=== PATIENT | male | born 1990 | race Caucasian/White ===

== ENCOUNTER 2017-11-15 12:32 | Emergency (ER) | payer BC ==
[~2017-11-15] VITALS: Ht 182.9 cm; Wt 84.4 kg
[2017-11-15] MEDS ORDERED: HYDROmorphone INJ 0.5 MG/0.5 ML SYR IV STA (12:44)
[2017-11-15] MEDS ORDERED: SODIUM CHLORIDE 0.9% 500ML 500 ML IV STA (12:44)
[2017-11-15] MEDS ORDERED: HYDROmorphone INJ 0.5 MG/0.5 ML SYR IV PRN (12:45)
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
[2017-11-15 12:55] VITALS: TEMP 36.6; Ht 182.9 cm; Wt 84.4 kg
[2017-11-15 12:57] LABS: HEMATOCRIT 43.8 % (42-52); HEMOGLOBIN 15.2 g/dL (14.0-18.0); MEAN CELL VOLUME 89.4 fL (80-100); MEAN CORPUSCULAR HGB CONC 34.7 g/dl (32-36); MEAN PLATELET VOLUME 9.3 fL (7.4-10.4); PLATELET COUNT 331 K/uL (130-400); RED CELL DISTRIBUTION WIDTH CV 12.9 % (11.5-14.5); RED CELL DISTRIBUTION WIDTH SD 42.1 fL (36.4-46.3); WHITE BLOOD COUNT 7.97 K/uL (4.8-10.8)
[2017-11-15] MEDS ORDERED: OPTIRAY 320 IV PRN (13:00)
[2017-11-15] MEDS ORDERED: DIPHTHERIA/TETANUS/PERTUSSIS 0.5 ML SYR/VIAL IM. ONE (13:00)
[2017-11-15 13:06] LABS: PTT PATIENT 21.7 SECONDS (21.0-31.0)
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
[2017-11-15 13:17] LABS: ALBUMIN 3.9 gm/dl (3.4-5.0); CALCIUM 9.3 mg/dl (8.5-10.1); CREATININE 1.63 mg/dl (0.60-1.40); POTASSIUM 3.4 mmol/L (3.5-5.1)
[2017-11-15 13:58] VITALS: BP 140/92; PULSE 108; O2SAT 99
== END 2017-11-15 13:40 | disposition short-term general hospital (02) ==
LOC: C.EDB 12:36
DX: S32.302A Unspecified fracture of left ilium, initial encounter for closed fracture (principal); S22.42XA Multiple fractures of ribs, left side, initial encounter for closed fracture; V27.4XXA Motorcycle driver injured in collision with fixed or stationary object in traffic accident, initial encounter; S30.810A Abrasion of lower back and pelvis, initial encounter; S30.0XXA Contusion of lower back and pelvis, initial encounter; Z23 Encounter for immunization

== ENCOUNTER 2024-03-03 03:23 | Inpatient (IN) ==
[2024-03-03] MEDS: MIDAZOLAM HCL 5 MG/ML 2ML VIAL IV STA ×2 (03:32→04:40)
[2024-03-03] MEDS: VECURONIUM BROMIDE 10 MG VIAL IV STA ×2 (03:42→05:09)
[2024-03-03 03:49] LABS: iSTAT Creatinine 1.8 mg/dl (0.6-1.3); iSTAT Ionized Calcium 1.23 mmol/l (1.12-1.32); iSTAT Potassium 4.5 mmol/L (3.3-5.0)
--- NOTE | 2024-03-03 04:09 | Emergency Department Note ---
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 to dedicated hand exam performed at the same time. FINDINGS: Bones/joints: No fracture, erosion or dislocation. Soft tissues: There is a 1 mm linear foreign body subjacent to a small cutaneous bulge which could reflect a laceration on the palmar surface of the second finger at the level of the distal shaft of the middle phalanx. It is roughly 1 mm deep to the skin. No soft tissue gas. IMPRESSION: There is a 1 mm linear foreign body subjacent to a small cutaneous bulge which could reflect a laceration on the palmar surface of the second finger at the level of the distal shaft of the middle phalanx. It is roughly 1 mm deep to the skin. ACT 112: Negative or not required by law. Electronically signed by Madhuri Matamoros 03-03-2024 5:11 PM Abdomen/Pelvis CT 03/03/24 03:41 EXAM: CT abd pelvis IV con only CLINICAL HISTORY: TRAUMA, 93 ML OPTIRAY 320 TECHNIQUE: Contrast-enhanced CT of the abdomen and pelvis was performed, with the following protocol: axial images with, and reconstructed coronal and sagittal images. 93 ml Optiray 320 Intravenous contrast was administered. One of the following dose reduction techniques was utilized for this exam: Automated exposure control, adjustment of the mA and/or kV according to patient size, and use of iterative reconstruction. COMPARISON: CR PELVIS 11/15/2017. FINDINGS: Visualized lower chest: Please review dedicated CT chest report. An NG tube is visualized, with a fenestration noted distal to the gastroesophageal junction. Advancing the tube by 4-5 cm is recommended. Abdomen: Liver: The liver measured about 18 cm in maximal craniocaudal dimension. Normal in shape, and density. No focal lesions, cysts, or masses were identified. Hepatic vasculature and biliary ducts are unremarkable. Gallbladder and Biliary System: The gallbladder is normal in size and shape. No wall thickening, pericholecystic fluid, or gallstones were identified. The common bile duct is normal in caliber, without dilation. Pancreas: Pancreatic head, body, and tail are visualized and appear normal in size and density. No pancreatic masses or calcifications were noted. The pancreatic duct is not dilated. Spleen: Normal in size, shape, and density. No splenic lesions or masses were identified. Kidneys and Adrenal Glands: Both kidneys are normal in size, shape, and position. Cortical thickness is within normal limits. No renal calculi or hydronephrosis. Adrenal glands are unremarkable with no evidence of masses or hyperplasia. Pelvis: Urinary Bladder: Cha's catheter is seen with its tip indnting the left anterolateral urinary bladder wall. Recommend withdrawal for 2-3 cm. Normal in contour and wall thickness. No intraluminal lesions identified. Prostate: Normal in size and contour. No focal lesions or masses identified. Seminal Vesicles: Normal in size and appearance. No abnormalities noted. Rectum and Sigmoid Colon: Normal wall thickness and no evidence of mass. Peritoneal and Retroperitoneal Structures: No free fluid or abnormal fluid collections were identified within the abdomen or pelvis. No lymphadenopathy was noted. Bowel: The visualized bowel loops are normal in caliber and appearance. No evidence of bowel obstruction or wall thickening. The appendix is unremarkable. No signs of inflammatory changes. Bones and Soft Tissues: Evidence of old left iliac bone fracture with interval healing. Pelvic bones and soft tissues are unremarkable. IMPRESSION: 1. No evidence of acute intra-abdominal pathology, acute bone fracture, or abdominal free fluid. 2. Mild hepatomegaly. 3. Compared to previous study CR pelvis, interval healing of the previously noted left iliac bone fracture is noted. Electronically signed by Lucian Hawthorne 03-03-2024 06:[address] 03/03/24 03:41 EXAM: CT cervical spine wo con CLINICAL HISTORY: TRAUMA TECHNIQUE: CT scan of the cervical spine was performed without the administration of intravenous contrast. Contiguous axial images were obtained from the skull base to the upper thoracic spine. Coronal and sagittal reformatted images were also reviewed. One of the following dose reduction techniques was utilized for this exam. Automated exposure control, adjustment of the mA and/or kV according to patient size, and use of iterative reconstruction. COMPARISON: No previous studies are available for comparison. FINDINGS: Vertebrae: Straightened cervical curve, likely muscle spasm. The vertebral bodies are normal in height and alignment. No evidence of acute fracture or dislocation. The cortical and trabecular bone patterns are normal. No signs of lytic or sclerotic lesions. Normal configuration of the posterior elements. Mild cervical spondylotic changes with small marginal osteophytic lippings of the cervical opposing vertebral end plates. Intervertebral Discs and Neural Foramina: The intervertebral disc spaces are preserved. C5-6 posterior disc bulge and traction osteophyte are seen indenting the thecal sac with moderate bilateral foraminal and spinal canal stenosis. No calcifications or ossifications were noted within the discs. Facet Joints: The facet joints are normal without evidence of dislocation, subluxation, or significant degenerative changes. Prevertebral Soft Tissues: The prevertebral soft tissues are normal in thickness without evidence of mass or abnormal fluid collection. Additional Findings: No other significant findings are noted in the visualized soft tissue structures or bony elements. Endotracheal and nasogastric tubes are noted. Prominent nasopharyngeal roof tissue IMPRESSION: 1. No evidence of acute fracture or dislocation. 2. Straightened cervical curve, likely muscle spasm. 3. Mild cervical spondylotic changes. 4. C5-6 posterior disc bulge and traction osteophyte inducing moderate bilateral foraminal and spinal canal stenosis. Electronically signed by Lucian Hawthorne 03-03-2024 05:[address] 03/03/24 03:41 EXAM: CT chest diagnostic w con CLINICAL HISTORY: TRAUMA, 93 ML OPTIRAY 320 TECHNIQUE: Contiguous 3.[address] images of the chest were acquired with administration of 93ml of Optray-320mg/ml intravenous contrast. Coronal and sagittal reconstructions were obtained. One of the following dose reduction techniques were utilized for this exam: Automated exposure control, adjustment of the mA and/or kV according to patient size, and use of iterative reconstruction COMPARISON: XR chest 03/03/2024 02:33:54 ULTIMATE HOOPS REFEREE. FINDINGS: Lungs: Right lower lobar collapse with residual air bronchograms noted within No ground-glass opacities or interstitial changes. No pleural effusion or pleural thickening. Mediastinum: No mediastinal mass or abnormal lymphadenopathy. Normal appearance of the thymus. Hilar Structures: Normal size and configuration, no enlargement. Heart and Great Vessels: Normal heart size and configuration. No pericardial effusion. Normal caliber and course of the thoracic aorta and other great vessels. No significant atherosclerosis or aneurysm. Normal enhancement of the great vessels post-contrast. Pulmonary Arteries: No evidence of pulmonary embolism. Normal size and course of the pulmonary arteries. Esophagus: Normal course and caliber. No masses or dilatation. Bones: No fractures or lytic/sclerotic lesions. Normal bone density and alignment. No evidence of rib fractures. Chest Wall: No masses or soft tissue abnormalities. Upper Abdomen: Please review the dedicated CT Abdomen report. Thyroid: Normal size and morphology. No nodules or masses. Additional findings: An endotracheal tube is observed positioned approximately 6 cm above the sb. An NG tube is visualized, with a fenestration noted distal to the gastroesophageal junction. Advancing the tube by 4-5 cm is recommended. IMPRESSION: 1. No evidence of acute fracture or pneumothorax. 2. Right lower lobar collapse with residual air bronchograms noted within. Findings could represent post-obstruction changes (possibly from mucous plugs or central mass), super-added infectious process is also a possibility. Need clinical correlation. 3. ET tube is seen in situ. 4. Recommend advancement of the NG tube about 4-5 cm. 5. Otherwise, no significant interval changes were noted. CT chest showed more details about soft tissues and bones. Electronically signed by Lucian Hawthorne 03-03-2024 06:14 AM Chest X-Ray 03/03/24 03:46 EXAM: XR chest 1V portable CLINICAL HISTORY: EVAL FOR ET PLACEMENT, TUBE WAS ADVANCED BY 2 AFTER IMAGE WAS TAKEN OVERDOSE [facility] TECHNIQUE: An X-ray image of the chest is obtained in 1 AP projection. COMPARISON: 11/15/2017. FINDINGS: ETT is seen ~ 9 cm from the sb and needs to be advanced 2-3 cm. NGT is seen coursing below the diaphragm with tip in an appropriate position. Pulmonary Parenchyma: Lungs are clear bilaterally. No evidence of consolidation, collapse, or focal opacities. No pulmonary nodules are identified. No evidence of pleural effusion or pleural thickening. Heart and Mediastinum: Heart size and shape are normal. No mediastinal widening or masses. No hilar or mediastinal lymphadenopathy. Bony Thorax: Bony thorax appears intact without fractures or deformities. Soft Tissues: Soft tissues overlying the chest wall are unremarkable. No other changes since the last study. IMPRESSION: 1. ETT is seen ~ 9 cm from the sb and needs to be advanced 2-3 cm.However, it is mentioned in the "clinical history" that the tube was already advanced 2 cm after taking the image, so please correlate with current situation of the patient if further adjustments is needed. 2. NGT is seen coursing below the diaphragm with tip in an appropriate position. 3. No acute cardiopulmonary compromise. 4. No other changes since the last study. Electronically signed by Lucian Hawthorne 03-03-2024 04:[address] 03/03/24 03:59 EXAM: CT facial bones wo con CLINICAL HISTORY: TRAUMA TECHNIQUE: CT scan of the maxillofacial region was performed without the administration of intravenous contrast. Contiguous axial images were obtained from the skull base to the mandible. Coronal and sagittal reformatted images were also reviewed. One of the following dose-reduction techniques was utilized for this exam. Automated exposure control, adjustment of the mA and/or kV according to patient size, and use of iterative reconstruction. COMPARISON: No previous studies are available for comparison. FINDINGS: Bones: Maxilla: The maxillary bones are intact without evidence of acute fracture, or lytic or sclerotic lesions. No signs of maxillary sinus wall fractures. Mandible: The mandibular bone is intact with normal cortices and trabecular patterns. There is no evidence of fracture, osteomyelitis, or neoplastic lesion. Zygomatic Bones: The zygomatic arches are intact bilaterally without evidence of fracture or deformity. Nasal Bones: The nasal bones are intact with no signs of fracture or displacement. Orbital Edmonds: The orbital edmonds are intact with no evidence of fracture or bony erosion. Orbits: The orbits are normal in size and shape. The globes are symmetric and well-positioned with no evidence of proptosis. The extraocular muscles appear normal in size and symmetry. The optic nerves are normal in caliber and course with no signs of compression or lesion. No retro-orbital masses or abnormal fluid collections are observed. Nasal Cavity and Paranasal Sinuses: Nasal Cavity: Nasal polyploid mucosal thickening merging with both inferior nasal turbinates. Deviated nasal septum to the right side with a bone spur along its convexity. Left choncha bullosa. Frontal Sinuses: The frontal sinuses are well-pneumatized and free of fluid or soft tissue masses. Ethmoid Sinuses: Mild mucosal thickening of the ethmoid air cells. Maxillary Sinuses: Mild basal mucosal thickening of the left maxillary antrum. Sphenoid Sinuses: Mild basal mucosal thickening of bilateral compartment of sphenoid sinuses. Temporomandibular Joints (TMJ): The TMJs are symmetric and normal in appearance. The mandibular condyles are well-positioned within the glenoid fossae. There are no signs of dislocation, subluxation, or degenerative changes. The articular eminences are normal in contour. Soft Tissues: The soft tissues of the face, including the cheeks, lips, and submandibular regions, appear unremarkable. There are no masses, cysts, or abnormal fluid collections. The parotid and submandibular glands are normal in size and appearance without focal lesions. Additional Findings: There are no additional abnormal findings in the visualized soft tissue structures or bony elements. No signs of osteomyelitis or other infectious processes. Nasogastric and endotracheal tubes are noted. IMPRESSION: 1. No evidence of acute fracture, dislocation or significant soft tissue abnormality. 2. Mild left maxillary, bilateral ethmoidal, and sphenoid sinusitis. 3. Nasal polyploid mucosal thickening merging with both inferior nasal turbinates. 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
[2024-03-03 04:10] LABS: Basophils # (auto) 0.07 K/uL (0.00-0.20); Basophils % (auto) 0.3 %; Eosinophils # (auto) 0.12 K/uL (0.00-0.50); Eosinophils % (auto) 0.5 %; Hematocrit (blood only) 48.1 % (42.0-52.0); Hemoglobin 16.1 g/dl (14.0-18.0); Immature Granulocytes # (auto) 0.23 K/uL (0.01-0.20); Immature Granulocytes % (auto) 0.9 %; Lymphocytes # (auto) 4.52 K/uL (1.20-3.40); Lymphocytes % (auto) 17.7 %; Mean Corpuscular Hgb Conc 33.5 g/dL (32.0-36.0); Mean Corpuscular Volume 89.6 fL (80.0-100.0); Mean Platelet Volume 8.7 fL (9.4-12.4); Monocytes % (auto) 3.5 %; Neutrophils # (auto) 19.69 K/uL (1.40-6.50); Neutrophils % (auto) 77.1 %; Platelet Count 399 K/uL (130-400); RDW Coefficient of Variation 12.7 % (11.5-14.5); RDW Standard Deviation 41.5 fL (36.4-46.3); Red Blood Count 5.37 M/uL (4.70-6.10); White Blood Count 25.53 K/ul (4.8-10.8)
[2024-03-03 04:12] LABS: Albumin Globulin Ratio 1.3 (0.9-2); Albumin Level 4.9 gm/dl (3.4-5.0); BUN Creatinine Ratio 11.1 (10-20); Bilirubin,Total 0.3 mg/dl (0.2-1.0); Creatinine Clr Calc Pharmacy 71.7 ml/min; Globulin 3.8 gm/dl (2.5-4.0); Magnesium 2.6 mg/dl (1.7-2.4); Potassium 4.4 mmol/L (3.5-5.1); Total Protein 8.7 gm/dl (6.0-8.3)
[2024-03-03 04:16] LABS: Appearance Urine Clear (Clear); Bacteria Urine Automated None Seen (None Seen); Bilirubin Urine Negative (Negative); Blood Urine 2+ (Negative); Cast Urine Automated >20 /lpf (0-2); Color Urine Yellow; Epithelial Cell Urine Auto 0-2 /hpf (0-2); Glucose Urine UA Negative (Negative); Ketones Urine Negative (Negative); Leukocyte Esterase Urine Negative (Negative); Nitrite Urine Negative (Negative); Protein Urine 2+ (Negative); RBC Urine Automated 0-2 /hpf (0-2); Specific Gravity Urine 1.013 (1.000-1.030); Urobilinogen Urine Negative (Negative); WBC Urine Automated 0-5 /hpf (0-5); pH Urine 5.5 (4.5-7.5)
[2024-03-03 04:19] LABS: Acetaminophen < 3 ug/ml (10-30); Salicylate < 3.0 mg/dl (3.0-30); Troponin I High Sensitivity 10.3 pg/ml (0-20)
[2024-03-03 04:20] LABS: Amphetamines+Metham, Urine Neg (Neg); Barbiturates, Urine Neg (Neg); Benzodiazepine, Urine Neg (Neg); Cocaine, Urine Neg (Neg); Fentanyl, Urine Neg (Neg); MDMA (Ecstacy), Urine Neg (Neg); Marijuana, Urine Neg (Neg); Methadone, Urine Neg (Neg); Opiate, Urine Neg (Neg); Phencyclidine, Urine Neg (Neg)
[2024-03-03] MEDS: MIDAZOLAM HCL 5 MG/ML 2ML VIAL ONE (04:21)
[2024-03-03] MEDS: VECURONIUM BROMIDE 10 MG VIAL IV ONE (04:21)
[2024-03-03] MEDS: RAPID SEQUENCE INDUCTION BAG ONE (04:21)
[2024-03-03] MEDS: OPTIRAY 320 100ml IV ONE (04:29)
[2024-03-03] MEDS: SUCCINYLCHOLINE CHLORIDE 20 MG/ML 10 ML VIAL IV STA (04:31)
--- NOTE | 2024-03-03 04:44 | XRay Report ---
EXAM: XR chest 1V portable CLINICAL HISTORY: EVAL FOR ET PLACEMENT, TUBE WAS ADVANCED BY 2 AFTER IMAGE WAS TAKEN OVERDOSE [facility] TECHNIQUE: An X-ray image of the chest is obtained in 1 AP projection. COMPARISON: 11/15/2017. FINDINGS: ETT is seen ~ 9 cm from the sb and needs to be advanced 2-3 cm. NGT is seen coursing below the diaphragm with tip in an appropriate position. Pulmonary Parenchyma: Lungs are clear bilaterally. No evidence of consolidation, collapse, or focal opacities. No pulmonary nodules are identified. No evidence of pleural effusion or pleural thickening. Heart and Mediastinum: Heart size and shape are normal. No mediastinal widening or masses. No hilar or mediastinal lymphadenopathy. Bony Thorax: Bony thorax appears intact without fractures or deformities. Soft Tissues: Soft tissues overlying the chest wall are unremarkable. No other changes since the last study. IMPRESSION: 1. ETT is seen ~ 9 cm from the sb and needs to be advanced 2-3 cm.However, it is mentioned in the "clinical history" that the tube was already advanced 2 cm after taking the image, so please correlate with current situation of the patient if further adjustments is needed. 2. NGT is seen coursing below the diaphragm with tip in an appropriate position. 3. No acute cardiopulmonary compromise. 4. No other changes since the last study. Electronically signed by Lucian Hawthorne 03-03-2024 04:43 AM
[2024-03-03] MEDS ORDERED: ACETAMINOPHEN 1,000 MG/100 ML VIAL IV PRN (05:01)
--- NOTE | 2024-03-03 05:09 | CT Scan Report ---
EXAM: CT head/brain wo con CLINICAL HISTORY: TRAUMA TECHNIQUE: An axial non-contrast CT scan of the brain was performed from the skull base to the high parietal region with coronal and sagittal reformats. One of the following dose-reduction techniques was utilized for this exam. Automated exposure control, adjustment of the mA and/or kV according to patient size, and use of iterative reconstruction. COMPARISON: None. FINDINGS: Brain Parenchyma: Normal attenuation of the cerebral hemispheres, cerebellum, and brainstem. No evidence of acute infarct, hemorrhage, or mass effect. No abnormal areas of hypo- or hyperattenuation. Ventricular System: Ventricles are normal in size and configuration. No evidence of hydrocephalus or ventricular enlargement. Subarachnoid Spaces: Normal sulci and cisterns. No evidence of subarachnoid hemorrhage or extra-axial fluid collections. Cerebellum and Brainstem: Normal size and density. No masses, or lesions. Orbits: Normal appearance of the globes, optic nerves, and extraocular muscles. No evidence of orbital masses. Sinuses: Mild deviated nasal septum to the right side. Minimal left maxillary, sphenoid mucosal thickening. Bilateral mild to moderate ethmoidal air cells mucosal thickening. Bilateral hypertrophied nasal turbinates with neat obliteration of both nasal fossae with mucosal thickening/retained secretions. Mastoid Air Cells: Clear mastoid air cells. No evidence of mastoiditis. Skull and Meninges: Normal skull morphology. IMPRESSION: 1. No fracture lines. No parenchyma or extra-axial fresh blood density. 2. Unremarkable CT brain study. Electronically signed by Esperanza Schmidt 03-03-2024 05:08 AM
[2024-03-03] MEDS ORDERED: STAT IV Infusion **Titration per Protocol STA (05:34)
[2024-03-03] MEDS: propofoL 1,000 MG/100 ML VIAL IV SCH (05:39)
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
[2024-03-03] MEDS: PROPOFOL BOLUS FROM BAG IV PRN (06:06)
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
[2024-03-03 06:23] LABS: Base Excess VBG -3.5 mEq/L; HCO3 VBG 22 mmol/L; Oxygen Saturation VBG 97.9 %; PCO2 VBG 41 mmHg (38-50); PO2 VBG 103 mmHg; pH VBG 7.34 (7.36-7.41)
[2024-03-03] MEDS: MIDAZOLAM HCL 1 MG/ML 2ML VIAL IV PRN (07:00)
[2024-03-03] MEDS: SODIUM CHLORIDE 0.9% 1,000 ML IV SCH (07:02)
--- NOTE | 2024-03-03 08:22 | Electrocardiogram Report ---
Test Reason : Blood Pressure : */* mmHG Vent. Rate : 101 BPM Atrial Rate : 101 BPM P-R Int : 172 ms QRS Dur : 100 ms QT Int : 346 ms P-R-T Axes : 59 62 45 degrees QTcB Int : 448 ms Sinus tachycardia Otherwise normal ECG When compared with ECG of 15-Nov-2017 13:11, No significant change Confirmed by Angel Lugo ([id number]) on 03/03/2024 8:22:37 AM Referred By: REFERRED SELF Confirmed By: Angel Lugo
[2024-03-03] MEDS: ICU Protocol for HYPERglycemia SCH (08:42)
[2024-03-03 09:13] LABS: BUN Creatinine Ratio 11.9 (10-20); Calcium 9.3 mg/dl (8.6-10.3); Creatinine Clr Calc Pharmacy 76.6 ml/min; Potassium 4.1 mmol/L (3.5-5.1)
[2024-03-03] MEDS: ENOXAPARIN INJ 40 MG/0.4 ML SYR SQ SCH (09:50)
[2024-03-03] MEDS: HYDROmorphone INJ 1 MG/ML SYRINGE IV PRN (09:51)
--- NOTE | 2024-03-03 12:54 | XRay Report ---
XR chest 1V portable HISTORY: 34 years-old Male on arrival to ICU eval ETT placement acute respiratory failure COMPARISON: Chest CT of same day TECHNIQUE: AP view of the chest FINDINGS: Endotracheal tube overlies the midline, 6.9 cm superior to the sb. Complete collapse of the right lower lobe redemonstrated. Mild reticulonodular right upper lobe opacities. Endotracheal tube course s into the stomach with distal tip outside the [id number]. No pneumothorax or pleural effusion. Jaren elan appear grossly intact. IMPRESSION: 1. Endotracheal and enteric tube placement as above. 2. Complete collapse of the right lower lobe redemonstrated. 3. Mild reticulonodular opacities in the right upper lobe are better seen on the same day chest CT co mpatible with an infectious or inflammatory bronchiolitis. ACT 112: Negative or not required by law. The above report was generated using voice recognition software. It may contain grammatical, syntax o r spelling errors. Electronically signed by: Thomas Barber M.D. 03/03/2024 12:52 PM
--- NOTE | 2024-03-03 13:08 | Communication Note ---
Date of Service: March 03, 2024
[2024-03-03 13:31] VITALS: TEMP 98.6
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
--- NOTE | 2024-03-03 16:43 | Procedure Note ---
Procedure Note Date of Service March 03, 2024 Procedure Date Critical Care Medicine Procedure: Wound care/removal of foreign body Pre-procedure Diagnosis: Glass retained in right foot Post-procedure Diagnosis: same as above Prior to Procedure: Informed Consent: The risks, benefits, indications, potential complications, and alternatives were explained to the [patient/family] and informed consent obtained. Attending Staff: Tanvi Zelaya DO Resident/Physician Paving Contractor: None Skin Prep: Cleansed with ChloraPrep Anesthesia: 1% lidocaine approximately 7 mL Indications: Patient is a 34-year-old male who suffered 2 plantar surface puncture wounds stepping on glass. Wound #1 is approximately 3 mm wound #2 is approximately 5 mm Description of Procedure: Wound #1 is approximately 3 mm wound #2 is approximately 5 mm wounds were irrigated copiously with saline and repeat x-rays were obtained with no change in the foreign bodies wound #1 was infiltrated with approximately 3 mL of 1% lidocaine and a small glass foreign body was removed. Into wound #2 approximately 4 mL of 1% lidocaine was instilled and a glass foreign body was removed Findings: Repeat x-ray demonstrated no foreign body retained in the right foot Complications: None EBL: Scant [facility] Procedure Codes (Charges) Skin and Soft Tissue Skin and Soft Tissue: 87798 Repair of wound or lesion (Foreign body removal) Coding CPT Codes Skin and Soft Tissue - Skin and Soft Tissue: 98551 Repair of wound or lesion ([id number]) Additional Codes Date of Service ([email or web address])
--- NOTE | 2024-03-03 16:56 | Procedure Note ---
Procedure Note Date of Service March 03, 2024 Procedure Date Critical Care Medicine Procedure: Removal of foreign body of left index finger Pre-procedure Diagnosis: Linear left index finger foreign body Post-procedure Diagnosis: same as above Prior to Procedure: Attending Staff: Tanvi Zelaya DO Resident/Physician Hot Strip Mill Supervisor: None Skin Prep: Cleansed with ChloraPrep Anesthesia: 2 mL of 1% lidocaine was instilled in a digital block in the left index finger. After copious irrigation and small manipulation a small what appeared to be metallic linear sliver was removed from the distal DIP joint of approximately 3 mm in length Indications: Small radiolucent foreign body in the DIP of the left index finger Description of Procedure: After copious irrigation and small manipulation a small what appeared to be metallic linear sliver was removed from the distal DIP joint of approximately 3 mm in length Findings: Removal of small presumptively metallic foreign body sliver in the very superficial left DIP joint Complications: None EBL: Scant [facility] Procedure Codes (Charges) Skin and Soft Tissue Skin and Soft Tissue: 88214 Repair of wound or lesion (Foreign body removal left index finger) Coding CPT Codes Skin and Soft Tissue - Skin and Soft Tissue: 22231 Repair of wound or lesion ([id number]) Additional Codes Date of Service ([email or web address])
--- NOTE | 2024-03-03 17:00 | XRay Report ---
EXAM: Radiographs of the Right Hand Complete 3. Views INDICATION: Pain. TECHNIQUE: Frontal, lateral and oblique views of the right hand. COMPARISON: No relevant prior studies available. FINDINGS: Bones/joints: No fracture, erosion or dislocation. Soft tissues: No abnormality noted. No radiopaque foreign body noted. IMPRESSION: No abnormality noted. ACT 112: Negative or not required by law. Electronically signed by Madhuri Matamoros 03-03-2024 4:59 PM
--- NOTE | 2024-03-03 17:01 | XRay Report ---
EXAM: Radiographs of the Left Foot Complete 3 Views INDICATION: Pain TECHNIQUE: Frontal, lateral and oblique views of the left foot. COMPARISON: No relevant prior studies available. FINDINGS: Bones/joints: No fracture, erosion or dislocation. Soft tissues: No abnormality noted. No radiopaque foreign body noted. IMPRESSION: No abnormality noted. ACT 112: Negative or not required by law. Electronically signed by Madhuri Mtaamoros 03-03-2024 5:01 PM
--- NOTE | 2024-03-03 17:03 | XRay Report ---
EXAM: Radiographs of the Right Foot Complete 3 Views INDICATION: Pain. TECHNIQUE: Frontal, lateral and oblique views of the right foot. COMPARISON: No relevant prior studies available. FINDINGS: Bones/joints: No fracture, erosion or dislocation. Soft tissues: There are foreign body particles in the superficial plantar soft tissues level of the first webspace. IMPRESSION: There are foreign body particles in the superficial plantar soft tissues level of the first webspace. No osseous abnormality noted. ACT 112: Negative or not required by law. Electronically signed by Madhuri Matamoros 03-03-2024 5:02 PM
--- NOTE | 2024-03-03 17:06 | XRay Report ---
EXAM: Radiographs of the Left Hand Complete 3 Views INDICATION: Foreign body second digit. Pain. TECHNIQUE: Frontal, lateral and oblique views of the left hand. The lateral view of the second finger is also included. COMPARISON: No relevant prior studies available. FINDINGS: Bones/joints: No fracture, erosion or dislocation. Soft tissues: There is a 1 mm linear foreign body projecting in the skin volar aspect of the second finger at the level of the distal aspect of the middle phalanx. No soft tissue gas collection. IMPRESSION: There is a 1 mm linear foreign body projecting in the skin volar aspect of the second finger at the level of the distal aspect of the middle phalanx. ACT 112: Negative or not required by law. Electronically signed by Madhuri Matamoros 03-03-2024 5:05 PM
--- NOTE | 2024-03-03 17:11 | XRay Report ---
EXAM: Radiographs of the Left Second Finger 1 View INDICATION: Foreign body. TECHNIQUE: Lateral view of the second finger provided. COMPARISON: Correlation made to dedicated hand exam performed at the same time. FINDINGS: Bones/joints: No fracture, erosion or dislocation. Soft tissues: There is a 1 mm linear foreign body subjacent to a small cutaneous bulge which could reflect a laceration on the palmar surface of the second finger at the level of the distal shaft of the middle phalanx. It is roughly 1 mm deep to the skin. No soft tissue gas. IMPRESSION: There is a 1 mm linear foreign body subjacent to a small cutaneous bulge which could reflect a laceration on the palmar surface of the second finger at the level of the distal shaft of the middle phalanx. It is roughly 1 mm deep to the skin. ACT 112: Negative or not required by law. Electronically signed by Madhuri Matamoros 03-03-2024 5:11 PM
--- NOTE | 2024-03-03 17:28 | XRay Report ---
EXAM: Radiographs of the Right Foot 2 Views INDICATION: TECHNIQUE: Oblique and lateral views were obtained between 4:24 PM and 4:36 PM the during foreign body removal. COMPARISON: No relevant prior studies available. FINDINGS: Bones/joints: No fracture, erosion or dislocation. Soft tissues: Foreign body particles previously identified plantar aspect of the medial foot had been removed. Soft tissue swelling and small amounts of gas noted where the foreign body particles were consistent with removal. IMPRESSION: Foreign body particles previously identified plantar aspect of the medial foot had been removed. ACT 112: Negative or not required by law. Electronically signed by Madhuri Matamoros 03-03-2024 5:26 PM
--- NOTE | 2024-03-03 18:28 | Ultrasound Report ---
EXAM: US Duplex Left Upper Extremity Arteries INDICATION: TECHNIQUE: Real-time duplex ultrasound scan of the left upper extremity arteries integrating B-mode two-dimensional vascular structure, Doppler spectral analysis and color flow Doppler imaging. COMPARISON: No relevant prior studies available. FINDINGS: Left subclavian artery: No acute change noted. No occlusion or significant stenosis on color flow and spectral Doppler imaging. Normal waveform. Left axillary artery: No acute change noted. No occlusion or significant stenosis on color flow and spectral Doppler imaging. Normal waveform. Left brachial artery: No acute change noted. No occlusion or significant stenosis on color flow and spectral Doppler imaging. Normal waveform. Left radial artery: There is an approximate 9 mm long mixed thrombus in the radial artery. Flow is diminished at 5 cm/s. Left ulnar artery: No acute change noted. No occlusion or significant stenosis on color flow and spectral Doppler imaging. Normal waveform. Soft tissues: No abnormality noted. IMPRESSION: Partially occlusive thrombus with significantly diminished velocity of flow in the left radial artery without occlusion. Upper extremity arteries otherwise appear normal. ACT 112: Negative or not required by law. Electronically signed by Madhuri Matamoros 03-03-2024 6:27 PM
--- NOTE | 2024-03-03 18:48 | Hospitalist Progress Note ---
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 EXAM: US Duplex Left Upper Extremity Arteries INDICATION: TECHNIQUE: Real-time duplex ultrasound scan of the left upper extremity arteries integrating B-mode two-dimensional vascular structure, Doppler spectral analysis and color flow Doppler imaging. COMPARISON: No relevant prior studies available. FINDINGS: Left subclavian artery: No acute change noted. No occlusion or significant stenosis on color flow and spectral Doppler imaging. Normal waveform. Left axillary artery: No acute change noted. No occlusion or significant stenosis on color flow and spectral Doppler imaging. Normal waveform. Left brachial artery: No acute change noted. No occlusion or significant stenosis on color flow and spectral Doppler imaging. Normal waveform. Left radial artery: There is an approximate 9 mm long mixed thrombus in the radial artery. Flow is diminished at 5 cm/s. Left ulnar artery: No acute change noted. No occlusion or significant stenosis on color flow and spectral Doppler imaging. Normal waveform. Soft tissues: No abnormality noted. IMPRESSION: Partially occlusive thrombus with significantly diminished velocity of flow in the left radial artery without occlusion. Upper extremity arteries otherwise appear normal. ACT 112: Negative or not required by law. Electronically signed by Madhuri Matamoros 03-03-2024 6:27 PM
[2024-03-03] MEDS: BACITRACIN OINT 14 GM TUBE EXT ONE (18:49)
[2024-03-03] MEDS: LIDOCAINE 2% 20 MG/ML 5 ML SYR IV ONE (18:50)
[2024-03-03] MEDS: KETOROLAC 30 MG/ML VIAL IV ONE (18:50)
[2024-03-03] MEDS: LIDOCAINE 1% LOCAL 20 ML VIAL ONE ×2 (18:50→18:58)
[2024-03-03] MEDS: KETOROLAC 30 MG/ML VIAL ONE (18:58)
--- NOTE | 2024-03-03 19:39 | Communication Note ---
Date of Service: March 03, 2024 Patient was sent for radial arterial duplex earlier for concern of left radial arterial oclusion following patient complaint of numbness/tingling and decreased sensation of left hand. - This has returned with interpretation of Partially occlusive thrombus with significantly diminished velocity of flow in the left radial artery without occlusion. Upper extremity arteries otherwise appear normal. Exam- decreased sensation from left ring finger, to thumb, duskiness has improved, remains with mild delayed cap refill. Pain he rates 6-7/10. Feels his sensation in thumb and index finger are the worst. He is able to pincher formula mixer, cross fingers, flexion and extension of all digits. A/P- partial occlusion of left radial artery - Patient was initiated on heparin infusion, orthopaedics consult placed with our services - Vascular surgery discussion with Dr. Salcedo in [facility]- case reviewed, physical exam reviewed, and diagnostics reviewed- did raise the question for consultation regarding IR/IA tPA or thrombectomy procedure. - Current Recommendations were initiate heparin as we are doing, he feels he will improve with heparin infusion - keep hand warm and covered with sergio hugger - initiated - CTA of the hand - ordered - Follow closely for any change in motor deficits or sensation changes- currently appears improved from earlier evaluation by myself at 1830 - Call them back for any changes or concerns and will re-evaluate or accept patient for above. - Dr. Ko from Orthopaedics also was able to be present for call and I was also present for his evaluation and discussion with patient. - These findings and conversations were also relayed to my Attending Dr. Zelaya in real time as able- will clarify duration of heparin infusion with vascular and goals of therapy. Manny SHIPMAN ([facility]-)
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
[2024-03-03] MEDS: OPTIRAY 320 125ml IV ONE (20:02)
[2024-03-03 20:07] LABS: Partial Thromboplastin Ratio 0.9; Partial Thromboplastin Time 25 Seconds (21-31); Prothrombin Time 10.8 Seconds (9.0-12.0)
[2024-03-03] MEDS: HEPARIN SOD (PORCINE) 1000 UNIT/ML IV ONE (20:30)
[2024-03-03] MEDS: HEPARIN SODIUM/DEXTROSE 25,000 UNITS/500 ML BAG IV SCH (20:31)
[2024-03-03] MEDS: Heparin IV Adult Wt-Based Standard w/ INITIAL Bolus Protocol IV STA (20:31)
[2024-03-03] MEDS: cephALEXin 500 MG CAP PO SCH (20:41)
[2024-03-03] MEDS ORDERED: MIDAZOLAM HCL 5 MG/ML 2ML VIAL IV ONE (20:42)
[2024-03-03] MEDS ORDERED: VECURONIUM BROMIDE 10 MG VIAL IV ONE (20:42)
[2024-03-03] MEDS ORDERED: SUCCINYLCHOLINE CHLORIDE 20 MG/ML 10 ML VIAL IV ONE (20:42)
[2024-03-03] MEDS: HYDROmorphone INJ 2 MG/ML SYR/VIAL IV PRN (22:26)
--- NOTE | 2024-03-03 22:30 | CT Scan Report ---
Exam(s): CTA EXTREMITY LEFT UPPER W/WO Contrast IV Amt: 117 cc opti 320 EXAM: CT Angiography of the Left Upper Extremity Without and With Intravenous Contrast CLINICAL HISTORY: Reason for exam: partial occlusion of left radial artery. TECHNIQUE: Axial computed tomographic angiography images of the left hand without and with intravenous contrast. CTDI is 64.59 mGy and DLP is 500.34 mGy- cm. Automated exposure control was utilized for the study. A dose lowering technique was utilized adhering to the principles of ALARA. MIP reconstructed images were created and reviewed. CONTRAST: Patient received 117 cc opti 320 of IV contrast COMPARISON: References made to prior ultrasound performed earlier on the same date FINDINGS: Exam limited secondary to the phase of contrast administration. The early arterial phase images are not seen and the images obtained on this study are more delayed than optimal. Despite this limitation there is a focal area of partially occlusive thrombus seen within the left radial artery just above the radial styloid best appreciated on axial image 89 series 6. The ulnar artery is widely patent and there is opacification of the digital arteries via the ulnar artery. UPPER EXTREMITY: Bones/joints: No acute fracture. No dislocation. Soft tissues: Unremarkable. No abnormal contrast enhancement. IMPRESSION: Short segment subtotal occlusion of the left radial artery at the level of the radial styloid Electronically signed by: Paulie Shaikh MD 03/03/24 22:29 PM
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
[2024-03-04] MEDS: HYDROmorphone INJ 0.5 MG/0.5 ML SYR IV PRN (08:04)
[2024-03-04 09:22] VITALS: BP 129/65; PULSE 65; RESP 19; O2SAT 96
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
--- NOTE | 2024-03-04 10:53 | Hospitalist Progress Note ---
Date of Service March 04, 2024 Assessment & Plan Admission and Anticipated Discharge Date Admission Date: March 03, 2024 Results & Data Results & Data Vital Signs (Past 12 Hours) Vital Signs Pulse Resp BP Pulse Ox O2 Del Method 03/04/24 09:06 65 19 96 03/04/24 09:00 129/65 03/04/24 08:59 Room Air 03/04/24 08:57 68 03/04/24 08:20 Room Air 03/04/24 08:00 140/83 03/04/24 07:57 82 21 98 03/04/24 07:09 67 15 131/87 98 03/04/24 06:00 141/79 H 03/04/24 05:53 69 16 98 03/04/24 05:02 97 H 21 96 03/04/24 05:00 127/67 03/04/24 05:00 127/67 03/04/24 05:00 127/67 03/04/24 05:00 127/67 03/04/24 04:50 79 20 97 03/04/24 04:20 72 15 96 03/04/24 04:00 139/83 03/04/24 04:00 139/83 03/04/24 03:51 68 18 96 03/04/24 03:05 64 17 96 03/04/24 03:00 130/74 03/04/24 02:38 78 22 95 03/04/24 02:09 102 H 23 100 03/04/24 02:00 147/94 H 03/04/24 02:00 147/94 H 03/04/24 01:51 87 19 99 03/04/24 01:03 92 H 18 99 03/04/24 01:00 137/76 03/04/24 01:00 137/76 03/04/24 01:00 137/76 03/04/24 00:57 84 18 97 03/04/24 00:00 148/88 H 03/04/24 00:00 97 H 17 99 03/03/24 23:09 96 H 18 98
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
[2024-03-04] MEDS: APIXABAN 5 MG TABLET PO SCH (12:08)
[2024-03-04] MEDS: ACETAMINOPHEN 325 MG TAB PO PRN (12:08)
--- NOTE | 2024-03-04 13:22 | Discharge Summary ---
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 tip outside the [id number]. No pneumothorax or pleural effusion. Bones appear grossly intact. IMPRESSION: 1. Endotracheal and enteric tube placement as above. 2. Complete collapse of the right lower lobe redemonstrated. 3. Mild reticulonodular opacities in the right upper lobe are better seen on the same day chest CT compatible with an infectious or inflammatory bronchiolitis. ACT 112: Negative or not required by law. The above report was generated using voice recognition software. It may contain grammatical, syntax or spelling errors. Electronically signed by: Thomas Barber M.D. 03/03/2024 12:52 PM Hand X-Ray 03/03/24 15:26 EXAM: Radiographs of the Right Hand Complete 3. Views INDICATION: Pain. TECHNIQUE: Frontal, lateral and oblique views of the right hand. COMPARISON: No relevant prior studies available. FINDINGS: Bones/joints: No fracture, erosion or dislocation. Soft tissues: No abnormality noted. No radiopaque foreign body noted. IMPRESSION: No abnormality noted. ACT 112: Negative or not required by law. Electronically signed by Madhuri Matamoros 03-03-2024 4:59 PM Foot X-Ray 03/03/24 15:43 EXAM: Radiographs of the Left Foot Complete 3 Views INDICATION: Pain TECHNIQUE: Frontal, lateral and oblique views of the left foot. COMPARISON: No relevant prior studies available. FINDINGS: Bones/joints: No fracture, erosion or dislocation. Soft tissues: No abnormality noted. No radiopaque foreign body noted. IMPRESSION: No abnormality noted. ACT 112: Negative or not required by law. Electronically signed by Madhuri Matamoros 03-03-2024 5:01 PM Foot X-Ray 03/03/24 15:43 EXAM: Radiographs of the Right Foot Complete 3 Views INDICATION: Pain. TECHNIQUE: Frontal, lateral and oblique views of the right foot. COMPARISON: No relevant prior studies available. FINDINGS: Bones/joints: No fracture, erosion or dislocation. Soft tissues: There are foreign body particles in the superficial plantar soft tissues level of the first webspace. IMPRESSION: There are foreign body particles in the superficial plantar soft tissues level of the first webspace. No osseous abnormality noted. ACT 112: Negative or not required by law. Electronically signed by Madhuri Matamoros 03-03-2024 5:02 PM Hand X-Ray 03/03/24 15:58 EXAM: Radiographs of the Left Hand Complete 3 Views INDICATION: Foreign body second digit. Pain. TECHNIQUE: Frontal, lateral and oblique views of the left hand. The lateral view of the second finger is also included. COMPARISON: No relevant prior studies available. FINDINGS: Bones/joints: No fracture, erosion or dislocation. Soft tissues: There is a 1 mm linear foreign body projecting in the skin volar aspect of the second finger at the level of the distal aspect of the middle phalanx. No soft tissue gas collection. IMPRESSION: There is a 1 mm linear foreign body projecting in the skin volar aspect of the second finger at the level of the distal aspect of the middle phalanx. ACT 112: Negative or not required by law. Electronically signed by Madhuri Matamoros 03-03-2024 5:05 PM Foot X-Ray 03/03/24 16:11 EXAM: Radiographs of the Right Foot 2 Views INDICATION: TECHNIQUE: Oblique and lateral views were obtained between 4:24 PM and 4:36 PM the during foreign body removal. COMPARISON: No relevant prior studies available. FINDINGS: Bones/joints: No fracture, erosion or dislocation. Soft tissues: Foreign body particles previously identified plantar aspect of the medial foot had been removed. Soft tissue swelling and small amounts of gas noted where the foreign body particles were consistent with removal. IMPRESSION: Foreign body particles previously identified plantar aspect of the medial foot had been removed. ACT 112: Negative or not required by law. Electronically signed by Madhuri Matamoros 03-03-2024 5:26 PM Duplex Scan Upper Extremity Artery 03/03/24 17:10 EXAM: US Duplex Left Upper Extremity Arteries INDICATION: TECHNIQUE: Real-time duplex ultrasound scan of the left upper extremity arteries integrating B-mode two-dimensional vascular structure, Doppler spectral analysis and color flow Doppler imaging. COMPARISON: No relevant prior studies available. FINDINGS: Left subclavian artery: No acute change noted. No occlusion or significant stenosis on color flow and spectral Doppler imaging. Normal waveform. Left axillary artery: No acute change noted. No occlusion or significant stenosis on color flow and spectral Doppler imaging. Normal waveform. Left brachial artery: No acute change noted. No occlusion or significant stenosis on color flow and spectral Doppler imaging. Normal waveform. Left radial artery: There is an approximate 9 mm long mixed thrombus in the radial artery. Flow is diminished at 5 cm/s. Left ulnar artery: No acute change noted. No occlusion or significant stenosis on color flow and spectral Doppler imaging. Normal waveform. Soft tissues: No abnormality noted. IMPRESSION: Partially occlusive thrombus with significantly diminished velocity of flow in the left radial artery without occlusion. Upper extremity arteries otherwise appear normal. ACT 112: Negative or not required by law. Electronically signed by Madhuri Matamoros 03-03-2024 6:27 PM Upper Extremity CTA 03/03/24 19:23 Exam(s): CTA EXTREMITY LEFT UPPER W/WO Contrast IV Amt: 117 cc opti 320 EXAM: CT Angiography of the Left Upper Extremity Without and With Intravenous Contrast CLINICAL HISTORY: Reason for exam: partial occlusion of left radial artery. TECHNIQUE: Axial computed tomographic angiography images of the left hand without and with intravenous contrast. CTDI is 64.59 mGy and DLP is 500.34 mGy- cm. Automated exposure control was utilized for the study. A dose lowering technique was utilized adhering to the principles of ALARA. MIP reconstructed images were created and reviewed. CONTRAST: Patient received 117 cc opti 320 of IV contrast COMPARISON: References made to prior ultrasound performed earlier on the same date FINDINGS: Exam limited secondary to the phase of contrast administration. The early arterial phase images are not seen and the images obtained on this study are more delayed than optimal. Despite this limitation there is a focal area of partially occlusive thrombus seen within the left radial artery just above the radial styloid best appreciated on axial image 89 series 6. The ulnar artery is widely patent and there is opacification of the digital arteries via the ulnar artery. UPPER EXTREMITY: Bones/joints: No acute fracture. No dislocation. Soft tissues: Unremarkable. No abnormal contrast enhancement. IMPRESSION: Short segment subtotal occlusion of the left radial artery at the level of the radial styloid Electronically signed by: Paulie Shaikh MD 03/03/24 22:29 PM Pending Results Patient Have Any Pending Studies at Discharge: No Discharge Instructions Given to Patient (Per Discharging Provider) Mr Lozada You were acutely delirious and severely agitated requiring sedation. You are now stable for discharge. You were noted to have foreign bodies in your hand and feet that were removed. Your tetanus was up-to-date and you were prescribed an antibiotic Keflex to complete a course of 7 days of treatment. Please continue taking that as prescribed. It was also noted that you had a blood clot in one of the arteries in your hand. We started you on the medication Eliquis to help with that. The specialist recommends that you will need to continue with this medication for a total of 3 months of treatment. Please keep close follow-up with your primary care provider about this and for any needed medication renewals. Again, please keep close follow up with your primary care provider after discharge. Please do not hesitate to come back to the emergency room if your symptoms worsen or return. Finish your antibiotics, return for redness or streaking up the foot or hand or any other concerns. It was a pleasure taking care of you while you were here. Total Time Total Time Spent Total Time Spent (In Minutes): 60
--- NOTE | 2024-03-09 13:16 | Coding Query ---
To promote full compliance with coding requirements relating to patient care, provider participation is requested in all cases of network support technician uncertainty. Please assist us with the question(s) below: Coding Question(s): The diagnosis(es) below was documented in the 03/03/24 Critical Care Note then subsequently fell off all further documentation. Please indicate if it is still a possible diagnosis or ruled out. Physician's Response(s): ASPIRATION PNEUMONITIS ( ) Diagnosed and POA ( ) Diagnosed and not POA (X ) Ruled out ( ) Other (please specify) MTDD
== END 2024-03-04 13:57 | DRG 917 ==
LOC: ED 03:23 → 1E 06:08 → SUATTDRO 06:08 → 1E 06:33 → UNDODISIN 18:15